=== PATIENT | male | born 1985 | race Two or more races ===

== ENCOUNTER 2017-04-26 19:43 | Emergency (ER) | payer MEDICAID ==
[~2017-04-26] VITALS: Ht 170.2 cm; Wt 95.3 kg
[2017-04-26 20:03] VITALS: BP 161/87
[2017-04-26] MEDS ORDERED: LIDOCAINE 1% HCL (LOCAL ANESTH.) INJ 20ML MDV IN ONE (21:15)
== END 2017-04-26 21:33 | disposition home or self-care (01) ==
LOC: ER 19:43
DX: L02.31 Cutaneous abscess of buttock (principal)
CPT/HCPCS: 10060